=== PATIENT | female | born 1955 | race Caucasian/White ===

== ENCOUNTER → 2016-06-01 | Outpatient (CLI) | payer BC ==
--- NOTE | 2016-06-01 16:22 | US ---
Thyroid Sonogram Clinical Indication: Evaluate for parathyroid adenoma. Comparison: MRI May 01, 2016. Technique: Longitudinal and transverse images of the thyroid gland were obtained. Findings The right lobe of the thyroid measures 1.6 x 1.5 x 4.0 cm. There is a benign-appearing 2 x 3 mm cyst. The isthmus of the thyroid measures 2 mm. The left lobe of the thyroid measures 1.4 x 1.1 x 4.3 cm. There is a benign-appearing 2 x 3 mm cyst. There is a complex cyst that is almost entirely cystic with a small mural component measuring 1.8 x 1 .6 x 0.7 cm. This is in the region of the abnormality seen on the MRI. Scattered benign neck nodes are present. Impression: Mixed solid/cystic nodule which is predominately cystic with a small mural component less than 2 cm. This does not meet criteria for fine-needle aspirate. Consider one year follow up to ensu re stability.
== END ==
LOC: BRMIMAGING 13:12
PROVIDERS: ATTEND Family Medicine
DX: E04.1 Nontoxic single thyroid nodule (principal)

== ENCOUNTER → 2016-08-24 | Outpatient (CLI) | payer BC | LOC: BRMIMAGING 15:08 | PROVIDERS: ATTEND Family Medicine | DX: Z13.820 Encounter for screening for osteoporosis (principal); M85.80 Other specified disorders of bone density and structure, unspecified site ==

== ENCOUNTER → 2016-09-26 | Outpatient (CLI) | payer BC | LOC: BRMIMAGING 07:38 | DX: Z12.31 Encounter for screening mammogram for malignant neoplasm of breast (principal); Z98.1 Arthrodesis status | CPT/HCPCS: 72040-PO; G0202 ==

== ENCOUNTER → 2016-11-05 | Outpatient (CLI) | payer BC | LOC: BRMIMAGING 08:18 | PROVIDERS: ATTEND Physician Assistant Surgical | DX: Z47.89 Encounter for other orthopedic aftercare (principal); Z98.1 Arthrodesis status | CPT/HCPCS: 72040-PO ==

== ENCOUNTER → 2017-02-06 | Outpatient (CLI) | payer BC | LOC: BRMIMAGING 09:10 | PROVIDERS: ATTEND Neurological Surgery | DX: Z09 Encounter for follow-up examination after completed treatment for conditions other than malignant neoplasm (principal); Z98.1 Arthrodesis status | CPT/HCPCS: 72040-PO ==

== ENCOUNTER → 2017-06-03 | Outpatient (CLI) | payer BC | LOC: BRMIMAGING 13:41 | PROVIDERS: ATTEND Family Medicine | DX: E04.1 Nontoxic single thyroid nodule (principal) ==

== ENCOUNTER → 2017-07-29 | Outpatient (CLI) | payer BC | LOC: BRMIMAGING 08:38 | PROVIDERS: ATTEND Neurological Surgery | DX: M48.02 Spinal stenosis, cervical region (principal); Z98.1 Arthrodesis status | CPT/HCPCS: 72040-PO ==